=== PATIENT | male | born 2000 | race Caucasian/White ===

== ENCOUNTER 2023-01-08 11:32 | Emergency (ER) | payer OTHER ==
[~2023-01-08] VITALS: Ht 170.2 cm; Wt 62.6 kg
[2023-01-08] MEDS ORDERED: HUMALOG100 UNIT/2 SQ (11:40)
== END 2023-01-08 17:35 | disposition home or self-care (01) ==
LOC: ER 11:32
DX: N50.812 Left testicular pain (principal); N45.2 Orchitis; E11.9 Type 2 diabetes mellitus without complications; Z79.4 Long term (current) use of insulin; Z91.013 Allergy to seafood